=== PATIENT | female | born 1975 | race Caucasian/White ===

== ENCOUNTER 2016-04-26 12:35 | Outpatient (CLI) | payer OTHER | END 2016-04-26 12:36 | disposition home or self-care (01) | DX: S20.1 Other and unspecified superficial injuries of breast (principal); Z98.82 Breast implant status ==

== ENCOUNTER 2017-03-12 09:30 | Outpatient (CLI) | payer OTHER | END 2017-03-12 09:31 | disposition home or self-care (01) | LOC: LAB.R 09:30 | PROVIDERS: ATTEND Family Medicine | DX: N39.0 Urinary tract infection, site not specified (principal) | CPT/HCPCS: 87077; 87086 ==

== ENCOUNTER 2017-10-17 13:52 | Outpatient (CLI) | payer OTHER | END 2017-10-17 13:53 | disposition critical access hospital (66) | LOC: EMS 13:52 | PROVIDERS: ATTEND Surgery | DX: R07.9 Chest pain, unspecified (principal); R00.0 Tachycardia, unspecified | CPT/HCPCS: A0425; A0427 ==

== ENCOUNTER 2017-10-17 14:14 | Emergency (ER) | payer OTHER ==
--- NOTE | 2017-10-17 15:02 | XRAY Report ---
Procedure Date: 10/17/2017 Accession Number: [id number] / [id number] Procedure: XR - Chest 1 View X-Ray CPT Code: 13787 FULL RESULT: EXAM: CHEST RADIOGRAPHY EXAM DATE: 10/17/2017 02:50 PM. CLINICAL HISTORY: Chest pain. COMPARISON: None. TECHNIQUE: 1 view. FINDINGS: Lungs/Pleura: Clear. No effusion or pneumothorax. Mediastinum: Within exam limitations, the cardiomediastinal contour is normal. Upper lobe vessels not distended. Other: Mild scoliosis. IMPRESSION: No acute disease. [facility]
--- NOTE | 2017-10-17 15:03 | ED Physician Documentation ---
PD HPI CHEST PAIN - Stated complaint Stated Complaint: CP - Chief complaint Chief Complaint: Cardiac - History obtained from History obtained from: Patient - History of Present Illness Timing - onset: Today Timing - onset during: Rest Timing - duration: Minutes (20) Timing - details: Abrupt onset, Now resolved Quality: Pressure, Tightness Location: Left chest Radiation: Back Associated symptoms: Diaphoresis. No: Shortness of air, Nausea, Vomiting, Feeling faint / dizzy, General Weakness, Palpitations, Cough Similar symptoms before: No diagnosis Recently seen: Not recently seen - Additional information Additional information: 42 year old female was at work today in the break room having lunch and after lunch she began to develop some pain in her left anterior chest. The pain was severe she clutched her chest and leaning forward and took a deep breath and the pain radiated into her left scapula. She felt some mild diaphoresis associated with this and she eventually told someone in her office and the ambulance was summoned. She did work in a doctor's office and electric cardiogram is done there that did not demonstrate any ST elevation. She was seen by medics and at the time she was seen she had near complete resolution of her pain but she still had some pain and this seemed to be improved further with use of nitroglycerin. She indicates she has had one prior episode similar to this several months ago that was short-lived and not as intense. She states that at that time she was sitting on the couch watching television after dinner. She has not noted other episodes in between and she denies any exertional dyspnea or exertional chest pain in the intervening time. Review of Systems Constitutional: denies: Fever Eyes: denies: Decreased vision Ears: denies: Ear pain Nose: denies: Congestion Throat: denies: Sore throat Cardiac: reports: Chest pain / pressure. 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 - Present Medications Home Medications: Ambulatory Orders Medication Instructions Recorded Confirmed No Known Home Medications [No 07/11/18 07/11/18 Known Home Medications] - Allergies Allergies/Adverse Reactions: Allergies Allergy/AdvReac Type Severity Reaction Status Date / Time No Known Drug Allergies Allergy Verified 10/17/17 14:28 - Social History Does the pt smoke?: No Smoking Status: Never smoker Does the pt drink ETOH?: Yes Does the pt have substance abuse?: No - Immunizations Immunizations are current?: Yes PD ED PE NORMAL - Vitals Vital signs reviewed: Yes (hypertensive and tachycardic) - General General: Alert and oriented X 3, No acute distress, Well developed/nourished - HEENT HEENT: Atraumatic, PERRL, EOMI - Neck Neck: Supple, no meningeal sign - Cardiac Cardiac: RRR, No murmur - Respiratory Respiratory: No respiratory distress, Clear bilaterally - Abdomen Abdomen: Soft, Non tender - Back Back: No CVA TTP, No spinal TTP - Derm Derm: Normal color, Warm and dry, No rash - Extremities Extremities: No deformity, No edema - Neuro Neuro: Alert and oriented X 3, assistant controller 2-12 intact, No motor deficit, No sensory deficit, Normal speech Eye Opening: Spontaneous Motor: Obeys Commands Verbal: Oriented GCS Score: 15 - Psych Psych: Normal mood, Normal affect Results - Vitals Vitals: Vital Signs - 24 hr 10/17/17 10/17/17 10/17/17 14:15 14:37 15:48 Temperature 36.7 C Heart Rate 106 H 91 Respiratory 20 20 Rate Blood Pressure 168/82 H 124/75 Blood Pressure 176/93 H [Right] O2 Saturation 98 98 Oxygen O2 Source Room air - EKG (time done) 1419 Rate: Rate (enter#) (101) Rhythm: Sinus tachycardia, LAE Ischemia: Normal ST segments Compare to prior EKG: Old EKG unavailable Computer interpretation: Agree with computer - Labs Labs: Laboratory Tests 10/17/17 10/17/17 10/17/17 15:14 15:14 15:14 WBC 11.5 H RBC 4.27 Hgb 12.3 Hct 36.8 L MCV 86.2 MCH 28.8 MCHC 33.4 RDW 14.7 Plt Count 377 MPV 7.8 L Neut # (Auto) 8.7 H Lymph # (Auto) 1.6 Pettis # (Auto) 0.9 Eos # (Auto) 0.2 Baso # (Auto) 0.1 Absolute Nucleated RBC 0.00 Nucleated RBC % 0.0 Sodium 137 Potassium 4.1 Chloride 102 Carbon Dioxide 26 Anion Gap 9.0 BUN 17 Creatinine 0.8 Estimated GFR (MDRD) 78 L Glucose 118 H Calcium 9.6 Total Bilirubin 0.4 AST 33 ALT 43 Alkaline Phosphatase 106 Troponin I < 0.04 Total Protein 7.7 Albumin 4.0 Globulin 3.7 Albumin/Globulin Ratio 1.1 Lipase 30 10/17/17 17:37 WBC RBC Hgb Hct MCV MCH MCHC RDW Plt Count MPV Neut # (Auto) Lymph # (Auto) Pettis # (Auto) Eos # (Auto) Baso # (Auto) Absolute Nucleated RBC Nucleated RBC % Sodium Potassium Chloride Carbon Dioxide Anion Gap BUN Creatinine Estimated GFR (MDRD) Glucose Calcium Total Bilirubin AST ALT Alkaline Phosphatase Troponin I < 0.04 Total Protein Albumin Globulin Albumin/Globulin Ratio Lipase - Rads (name of study) 1 view chest Radiology: Prelim report reviewed (Impression: No acute disease.), EMP read indepedently, See rad report ultrasound abd lmt Radiology: Prelim report reviewed (Impression: 1. No cholecystitis, cholelithiasis or biliary dilation 2 small 5 mm benign gallbladder polyp seen.) , EMP read indepedently, See rad report PD MEDICAL DECISION MAKING - ED course Complexity details: reviewed old records, reviewed results, re-evaluated patient , considered differential, d/w patient ED course: 42-year-old female with a family history of early coronary disease has had an episode of chest pain lasting about 20 minutes today and resolving spontaneously. She did have radiation of the pain to her scapula and on my initial evaluation I considered gallbladder disease to be a possible etiology for this specific episode of pain. She has had one other episode similar after eating. She does not give any history of exertional dyspnea or feeling out of shape. She denies any attempts to exercise. Here in the emergency department today the gallbladder is without evidence of obvious stone and there is a polyp in the gallbladder and I am reluctant to sign the pain to the patient's gallbladder. Troponins are negative x2 she has no change in her electrocardiogram and no episodes or sensations of pain in the emergency department. She does have ready access to her primary care physician and to the scheduling for exercise treadmill test. She will seek an exercise treadmill test with Dr. Arenas at the earliest possible convenience. - Sepsis Event Vital Signs: Vital Signs - 24 hr 10/17/17 10/17/17 10/17/17 14:15 14:37 15:48 Temperature 36.7 C Heart Rate 106 H 91 Respiratory 20 20 Rate Blood Pressure 168/82 H 124/75 Blood Pressure 176/93 H [Right] O2 Saturation 98 98 Oxygen O2 Source Room air Departure - Departure Disposition: 01 Home, Self Care Clinical Impression: Atypical chest pain Condition: Stable Instructions: ED Chest Pain Atypical Unkn Cause Follow-Up: Jessi Arenas DO [Primary Care Provider] - Comments: Today here in the emergency department your electric cardiogram did not show evidence of heart attack and the troponins were negative twice. We did not find evidence to support the gallbladder as a source of your pain. Because of your family history of early coronary disease it is imperative that you have an exercise treadmill test done with your primary care doctor at your earliest convenience. If you develop chest pain again please call [phone] and return to the emergency department for reevaluation.
[2017-10-17 15:20] LABS: BASOPHILS # (AUTO) 0.1 10^3/uL (0.0-0.1); BASOPHILS % (AUTO) 0.6 %; EOSINOPHILS # (AUTO) 0.2 10^3/uL (0.0-0.7); EOSINOPHILS % (AUTO) 1.8 %; HGB - HEMOGLOBIN 12.3 g/dL (12.0-16.0); LYMPHOCYTES # (AUTO) 1.6 10^3/uL (1.5-3.5); LYMPHOCYTES % (AUTO) 14.2 %; MEAN CORPUSCULAR HEMOGLOBIN 28.8 pg (27.0-31.0); MEAN CORPUSCULAR HGB CONC 33.4 g/dL (32.0-36.0); MEAN CORPUSCULAR VOLUME 86.2 fL (81.0-99.0); MEAN PLATELET VOLUME 7.8 fL (7.9-10.8); MONOCYTES # (AUTO) 0.9 10^3/uL (0.0-1.0); MONOCYTES % (AUTO) 7.7 %; NEUTROPHILS # (AUTO) 8.7 10^3/uL (1.5-6.6); NEUTROPHILS % (AUTO) 75.7 %; PLT - PLATELET COUNT 377 10^3/uL (130-450); RED BLOOD COUNT 4.27 10^6/uL (4.20-5.40); RED CELL DISTRIBUTION WIDTH 14.7 % (12.0-15.0); WHITE BLOOD COUNT 11.5 x10^3/uL (4.8-10.8)
[2017-10-17 15:34] LABS: ALBUMIN/GLOBULIN RATIO 1.1 (1.0-2.2); BILIRUBIN,TOTAL 0.4 mg/dL (0.2-1.0); CALCIUM 9.6 mg/dL (8.5-10.3); CREATININE 0.8 mg/dL (0.4-1.0); TOTAL PROTEIN 7.7 g/dL (6.7-8.2)
--- NOTE | 2017-10-17 17:37 | Ultrasound Report ---
Procedure Date: 10/17/2017 Accession Number: [id number] / [id number] Procedure: US - Abdomen Limited CPT Code: FULL RESULT: EXAM: ABDOMEN ULTRASOUND LIMITED, RUQ EXAM DATE: 10/17/2017 04:59 PM. CLINICAL HISTORY: Right upper quadrant pain. COMPARISON: None. TECHNIQUE: Real-time scanning was performed with static images obtained. FINDINGS: Liver: Normal in size and echotexture. The liver measures 14.3 cm. Main portal vein flow: Hepatopetal. Gallbladder: A small 5 mm gallbladder polyp is seen along the anterior wall. No stones, wall thickening, or sonographic Munson's sign. Biliary System: CBD measures 3 mm. No intrahepatic or extrahepatic ductal dilatation. Other: None. IMPRESSION: 1. No cholecystitis, cholelithiasis or biliary dilation. 2. Small 5 mm benign gallbladder polyp seen. [facility]
[2017-10-17 18:30] VITALS: BP 144/97
== END 2017-10-17 18:33 | disposition home or self-care (01) ==
LOC: EDUNIT# → ED 14:14
DX: R07.89 Other chest pain (principal); R00.0 Tachycardia, unspecified
CPT/HCPCS: 36415; 71045; 76705; 80053; 83690; 84484; 85025; 93005; 99283; 99284